=== PATIENT | female | born 1990 | race Caucasian/White ===

== ENCOUNTER 2021-11-29 23:11 | Emergency (ER) | payer MEDICAID, SELFPAY | END 2021-11-30 01:28 | disposition left against medical advice (07) | PROVIDERS: Emergency Provider Emergency Medicine | DX: L50.9 Urticaria, unspecified (principal) ==

== ENCOUNTER 2021-11-30 00:44 | Emergency (ER) | payer MEDICAID, SELFPAY ==
[2021-11-30 01:29] VITALS: BP 116/59; PULSE 90; RESP 20; TEMP 36.8; O2SAT 98; BMI 21.7
[2021-11-30 02:50] VITALS: BP 98/48; PULSE 79; RESP 12; O2SAT 98
[2021-11-30] MEDS: diphenhydrAMINE HCL 25 MG TABLET PO (04:58)
--- NOTE | 2021-11-30 05:25 | ED_ITS ---
HPI - General Adult General Chief complaint: General Medical Stated complaint: Hives/?Allergic reaction Time Seen by Provider: 11/30/21 02:55 Source: patient Mode of arrival: ambulatory History of Present Illness HPI narrative: 30-year-old female without significant past medical history eczema and denies any hiking or exposure to poison arthur presents with a rash to her abdomen and bilateral upper extremities as well as bilateral inner thighs without associated fever, chills and patient reports that she is up-to-date on all vaccines. Palms and soles are not involved and patient denies any recent soap, food, laundry detergent, lotions or perfumes. She also denies any difficulty with swallowing or breathing and denies any lip/ face/tongue swelling. Related Data Previous Rx's Medication Instructions Recorded prednisone 10 mg tablet 10 mg PO DAILY 5 Days #5 tab 11/30/21 Allergies Allergy/AdvReac Type Severity Reaction Status Date / Time Penicillins [PENICILLINS] Allergy Unknown UNKNOWN Unverified 05/03/20 17:07 Review of Systems Review of Systems: Pertinent positives and negatives as stated in HPI 10 point review of systems is otherwise negative. PMFSH Past Medical History Source: nursing notes reviewed Medical History No known health problems Surgical History No history of previous surgery Social History Social History Advance Directives: No Patient : No Physical Exam ED Vital Signs: Vital Signs - 24 hr 11/30/21 01:29 11/30/21 02:50 Temperature 98.2 F Pulse Rate 90 79 Respiratory Rate 20 12 Blood Pressure 116/59 L 98/48 L Pulse Oximetry 98 98 BMI result Body Mass Index 21.7 VITAL SIGNS: Reviewed. GENERAL: Well developed, well nourished, in no acute distress. HEAD: Normocephalic/atraumatic EYES: PERRLA, EOMI OROPHARYNX: no oral lesions noted, posterior pharynx clear , no lip/tongue /facial swelling NECK: Supple, no adenopathy LUNGS: Normal breath sounds, no stridor / wheeze/rhonchi/rales. SpO2<98> CARDIOVASCULAR: Regular rate and rhythm without noted murmurs ABDOMEN: Soft, non-tender, non-distended with bowel sounds. MUSCULOSKELETAL: No tenderness, deformities, or effusions noted on gross inspec tion. EXTREMITIES: No cyanosis, clubbing or edema. SKIN: Inspection of the skin reveals but pruritic raised urticaria noted to the anterior abdomen and extensor surfaces of bilateral forearms as well as bilateral medial thighs. NEUROLOGIC: Alert and oriented x 4. Strength and sensation to light touch were grossly intact x 4. Course Course Course Narrative: 30-year-old female with history and clinical presentation suggestive of possible eczema and/ or contact dermatitis without presence of angioedema or anaphylaxis. Patient was given Benadryl in the emergency room and will receive a prescription for low-dose steroids and instructions regarding eczema management. Discharge Plan Discharge Clinical Impression: Urticaria Patient Disposition: Home, Self-Care Instructions: Urticaria (ED), Eczema (ED) Additional Instructions: 1. Recommend taking [id number] Benadryl at night before going to sleep and combine this with your prescription for low-dose steroids over the next 5 days. 2. Use set a feel for body wash, do not take hot showers, and liberally apply lotion after taking a shower. Avoid all perfumes and scented body lotions. 3. Follow-up with the primary care provider in the next 2-3 days for re- evaluation. Return to the ER for worsening symptoms. Prescriptions: New prednisone 10 mg tablet 10 mg PO DAILY 5 Days Qty: 5 0RF Referrals: [facility] [Primary Care Provider] -
== END 2021-11-30 05:37 | disposition home or self-care (01) ==
PROVIDERS: Emergency Provider Student in an Organized Health Care Education/Training Program
DX: L50.9 Urticaria, unspecified (principal); Z88.0 Allergy status to penicillin
CPT/HCPCS: 99283; Q0163

== ENCOUNTER 2022-02-07 10:15 | Emergency (ER) | payer MEDICAID, SELFPAY ==
--- NOTE | ~2022-02-07 | US_ITS ---
EXAMINATION: US PELVIS CLINICAL INFORMATION: Pain and left adnexal tenderness. COMPARISON: None TECHNIQUE: Ultrasound of the pelvis is performed using both transabdominal and transvaginal transducers along with Doppler. Transvaginal imaging is performed due to inadequate visualization transabdominally. Doppler color and grayscale evaluation of arterial and venous flow to the ovaries including waveform spectral analysis. FINDINGS: The uterus is anteverted and measures 8.8 x 3.7 x 6 cm in dimension. There is an IUD in the uterus that appears abnormally positioned in the endometrium. The IUD is in abnormal position. The IUD appears flipped with the arms extending into the lower uterine segment/cervix. The endometrium does not appear thickened measuring 0.3 cm. There is a 1 x 0.7 x 0.8 cm hypoechoic lesion in the left anterior uterine body suggestive of a fibroid. The ovaries are normal. The right ovary measures 3.6 x 1.7 x 2.4 cm. The left ovary measures 3.8 x 1.8 x 2.8 cm. Arterial and venous flow is documented to both ovaries. There is no evidence of torsion. There is no fluid in the pelvis. US/US pelvic and transvaginal IMPRESSION: Abnormally positioned IUD. The IUD appears upside down or flipped with the arms extending into the lower uterine segment/cervix. Small uterine fibroid. Normal-appearing ovaries. No evidence of torsion.
--- NOTE | ~2022-02-07 | US_ITS ---
EXAMINATION: US PELVIS CLINICAL INFORMATION: Pain and left adnexal tenderness. COMPARISON: None TECHNIQUE: Ultrasound of the pelvis is performed using both transabdominal and transvaginal transducers along with Doppler. Transvaginal imaging is performed due to inadequate visualization transabdominally. Doppler color and grayscale evaluation of arterial and venous flow to the ovaries including waveform spectral analysis. FINDINGS: The uterus is anteverted and measures 8.8 x 3.7 x 6 cm in dimension. There is an IUD in the uterus that appears abnormally positioned in the endometrium. The IUD is in abnormal position. The IUD appears flipped with the arms extending into the lower uterine segment/cervix. The endometrium does not appear thickened measuring 0.3 cm. There is a 1 x 0.7 x 0.8 cm hypoechoic lesion in the left anterior uterine body suggestive of a fibroid. The ovaries are normal. The right ovary measures 3.6 x 1.7 x 2.4 cm. The left ovary measures 3.8 x 1.8 x 2.8 cm. Arterial and venous flow is documented to both ovaries. There is no evidence of torsion. There is no fluid in the pelvis. US/US pelvic ovarian doppler IMPRESSION: Abnormally positioned IUD. The IUD appears upside down or flipped with the arms extending into the lower uterine segment/cervix. Small uterine fibroid. Normal-appearing ovaries. No evidence of torsion.
[2022-02-07 10:25] VITALS: BP 99/53; PULSE 74; RESP 18; TEMP 37.3; O2SAT 99; BMI 19.3
--- NOTE | 2022-02-07 10:32 | ED.GENADULT ---
HPI - General Adult General Chief complaint: General Medical Stated complaint: abd pain Time Seen by Provider: 02/07/22 10:31 Source: patient Mode of arrival: ambulatory Limitations: no limitations History of Present Illness HPI narrative: 31-year-old female presents for 1 month of smelly vaginal discharge, and lower abdominal pain. Patient states she has had pain in her left pelvis, and has been nauseous. States she has had burning when she pees for the last 2 months, no back pain, no fevers. Patient is sexually active, patient has had pain with sex. She is concern for STDs. Patient's last menstrual period was January 24. States the pelvic pain comes and goes. Patient has a Mirena IUD. Related Data Previous Rx's Medication Instructions Recorded prednisone 10 mg tablet 10 mg PO DAILY 5 days #5 tabs 11/30/21 metronidazole 500 mg tablet 500 mg PO BID 7 days #14 tabs 02/07/22 nitrofurantoin macrocrystal 100 mg 100 mg PO BID 5 days #10 caps 02/07/22 capsule Allergies Allergy/AdvReac Type Severity Reaction Status Date / Time Penicillins [PENICILLINS] Allergy Unknown UNKNOWN Unverified 05/03/20 17:07 Review of Systems Constitutional: Constitutional: Denies body ache(s), Denies chills, Denies fatigue, Denies fever(s), Denies malaise and Denies weakness Eyes: Eyes: Denies diplopia Cardiovascular: Cardiovascular: Denies chest pain, Denies syncope, Denies leg edema, Denies lightheadedness, Denies Loss of Consciousness, Denies palpitations and Denies dyspnea Respiratory: Respiratory: Denies chest congestion, Denies cough and Denies dyspnea Gastrointestinal: Gastrointestinal: Denies abdominal pain, Denies hematochezia, Denies constipation, Denies diarrhea, Reports nausea and Denies vomiting Genitourinary: Genitourinary: Denies abnormal menses, Denies abnormal vaginal bleeding, Denies difficulty voiding, Denies genital pruritis, Denies genital lesions, Reports dyspareunia, Reports dysuria, Denies flank pain, Denies urinary incontinence, Reports urinary urgency, Reports vaginal discharge, Reports vaginal odor and Denies vaginal pruritus Musculoskeletal: Musculoskeletal: Reports no additional musculoskeletal complaints and Denies back pain Neurologic: Denies confusion, Denies syncope and Denies weakness Psychiatric: Psychiatric: Denies anxiety, Denies confusion and Denies depression Endocrine: Endocrine: Denies fatigue and Denies palpitations PMFSH Past Medical History Medical History No known health problems Surgical History No history of previous surgery Social History Social History Advance Directives: No Advance Directives Information Provided: Yes Patient : No Physical Exam ED Vital Signs: Vital Signs - 24 hr 02/07/22 10:25 Temperature 99.1 F Pulse Rate 74 Respiratory Rate 18 Blood Pressure 99/53 L Pulse Oximetry 99 Oxygen Delivery Method Room Air BMI result Body Mass Index 19.3 Const General: No confusion Nutritional Appearance: well nourished Orientation/consciousness: No confusion Limitations: no limitations Eyes Conjunctivae: conjunctivae normal Pupils: Equal, round and reactive pupils present EOM: EOMs intact bilaterally Neck Neck: Yes full ROM, Yes no lymphadenopathy and Yes supple Resp Effort & Inspection: normal respiratory effort and able to speak in complete sentences Auscultation: clear to auscultation bilaterally, no crackles, no rales, no rhonchi and no wheezes Cardio Rate: regular rate Rhythm: regular rhythm Heart sounds: S1 normal heart sound present and S2 normal heart sound present GI Inspection: Yes normal to inspection Palpation (GI): Soft to palpation, nontender, no guarding and not rigid Percussion: Yes normal to percussion Auscultation: normal bowel sounds External Female Exam: normal external appearance, normal appearance of the urethra and No urethral discharge Speculum Exam - Vagina: abnormal vaginal discharge malodorous and bey, not erythematous, no swelling and nontender Speculum Exam - Cervix: normal appearance of the cervix, normal palpation and nontender Bimanual exam- vagina & uterus: normal palpation and No Cervical tenderness present Bimanual Exam- Adnexa, other: tender Skin General skin exam: no rashes or lesions noted Neuro General: No confusion Cranial nerves: Yes Equal, round and reactive pupils present Extrem General: Yes normal to inspection and Yes full ROM Psych Appearance: grossly normal Affect: normal affect Attitude: cooperative Thought process: Normal thought process present Course Course Course Narrative: 31-year-old female lives in a [facility] with her autistic son presents for 1 month of vaginal discharge that is foul in odor with low abdominal pain. On exam, patient has stable vitals, is afebrile, abdomen soft nontender. STATISTICIAN MATHEMATICAL exam shows patient is tender in her left adnexa, no cervical motion tenderness. [place] judge vaginal discharge Did get gonorrhea and chlamydia labs which returned negative. Bacterial vaginosis panel is pending until tomorrow, but will treat clinically for bacterial vaginosis given pelvic pain and foul bey discharge. Ultrasound shows that IUD is not in the correct position. Patient has urinary tract infection as well Macrobid, Flagyl, follow-up with OBGYN for IUD consultation Reevaluation(s) Reevaluation #1: FINDINGS: The uterus is anteverted and measures 8.8 x 3.7 x 6 cm in dimension. There is an IUD in the uterus that appears abnormally positioned in the endometrium. The IUD is in abnormal position. The IUD appears flipped with the arms extending into the lower uterine segment/cervix. The endometrium does not appear thickened measuring 0.3 cm. There is a 1 x 0.7 x 0.8 cm hypoechoic lesion in the left anterior uterine body suggestive of a fibroid. The ovaries are normal. The right ovary measures 3.6 x 1.7 x 2.4 cm. The left ovary measures 3.8 x 1.8 x 2.8 cm. Arterial and venous flow is documented to both ovaries. There is no evidence of torsion. There is no fluid in the pelvis. US/US pelvic and transvaginal IMPRESSION: Abnormally positioned IUD. The IUD appears upside down or flipped with the arms extending into the lower uterine segment/cervix. Small uterine fibroid. Normal-appearing ovaries. No evidence of torsion. Medical Decision Making Lab Data Result diagrams: 02/07/22 11:47 02/07/22 11:47 Labs: Lab Results 02/07/22 02/07/22 02/07/22 Range/Units 11:47 11:47 11:47 WBC 7.4 (4.8-10.8) X10*3/uL RBC 4.53 (4.20-5.50) X10*6/uL Hgb 11.9 L (12.0-16.0) g/dl Hct 38.2 (37.0-47.0) % MCV 84.3 (80.0-98.0) fL MCH 26.3 L (27.0-33.0) pg MCHC 31.2 (31.0-35.0) g/dl RDW 13.7 (11.0-16.0) % Plt Count 292 (160-400) X10*3/uL MPV 9.7 (9.4-12.3) fL Immature Gran % (Auto) 0.3 (0.0-0.4) % Neut % (Auto) 59.3 (45-73) % Lymph % (Auto) 28.5 (20-40) % Daniels % (Auto) 10.5 (2-11) % Eos % (Auto) 0.9 (0-4) % Baso % (Auto) 0.5 (0-2) % Lymph # (Auto) 2.1 (1.2-4.9) X10*3/uL Daniels # (Auto) 0.8 (0.1-1.2) X10*3/uL Eos # (Auto) 0.1 (0.0-0.4) X10*3/uL Baso # (Auto) 0.0 (0.0-0.2) X10*3/uL Abs Immat Gran (auto) 0.02 (0.00-0.03) X10*3/uL Absolute Neuts (auto) 4.4 (2.0-8.3) x10*3/uL Absolute Nucleated RBC 0.000 (0.0-0.012) X10*3/uL Nucleated RBC % (auto) 0.0 (0.0-0.2) /100WBC Sodium 138 (135-145) mmol/L Potassium 4.1 (3.3-5.1) mmol/L Chloride 105 (96-108) mmol/L Carbon Dioxide 28 (22-29) mmol/L Anion Gap 9 L (12-20) BUN 13 (9-16) mg/dL Creatinine 0.71 (0.5-1.4) mg/dL Estim Creat Clear Calc 83.0 Estimated GFR > 60 Random Glucose 92 (60-115) mg/dL Calcium 9.1 (8.4-10.2) mg/dL Total Bilirubin 0.4 (0.0-1.0) mg/dL AST 14 (5-31) U/L ALT 16 (0-31) U/L Alkaline Phosphatase 47 (39-117) U/L Total Protein 7.2 (6.5-8.0) g/dL Albumin 4.6 (3.5-5.0) g/dL Urine Color YELLOW Urine Appearance CLOUDY Urine pH 6.0 (5.0-8.0) Ur Specific [place] >= 1.030 H (1.005-1.025) Urine Protein 1+ H (NEG-TRACE) MG/DL Urine Glucose (UA) NEG (NEG) MG/DL Urine Ketones 5 (NEG) MG/DL Urine Blood TRACE (NEG) Urine Nitrite NEG (NEG) Ur Leukocyte Esterase 1+ H (NEG) Urine RBC 1-4 (0) /HPF Urine WBC 10-14 H (0-4) /HPF Ur Squamous Epith Cells 4+ /LPF Urine Bacteria 1+ /LPF Urine Test (NEGATIVE) Chlam trachomat DNA PCR (Not Detect.) N.gonorrhoeae DNA (PCR) (Not Detect.) 02/07/22 02/07/22 Range/Units 11:47 11:47 WBC (4.8-10.8) X10*3/uL RBC (4.20-5.50) X10*6/uL Hgb (12.0-16.0) g/dl Hct (37.0-47.0) % MCV (80.0-98.0) fL MCH (27.0-33.0) pg MCHC (31.0-35.0) g/dl RDW (11.0-16.0) % Plt Count (160-400) X10*3/uL MPV (9.4-12.3) fL Immature Gran % (Auto) (0.0-0.4) % Neut % (Auto) (45-73) % Lymph % (Auto) (20-40) % Daniels % (Auto) (2-11) % Eos % (Auto) (0-4) % Baso % (Auto) (0-2) % Lymph # (Auto) (1.2-4.9) X10*3/uL Daniels # (Auto) (0.1-1.2) X10*3/uL Eos # (Auto) (0.0-0.4) X10*3/uL Baso # (Auto) (0.0-0.2) X10*3/uL Abs Immat Gran (auto) (0.00-0.03) X10*3/uL Absolute Neuts (auto) (2.0-8.3) x10*3/uL Absolute Nucleated RBC (0.0-0.012) X10*3/uL Nucleated RBC % (auto) (0.0-0.2) /100WBC Sodium (135-145) mmol/L Potassium (3.3-5.1) mmol/L Chloride (96-108) mmol/L Carbon Dioxide (22-29) mmol/L Anion Gap (12-20) BUN (9-16) mg/dL Creatinine (0.5-1.4) mg/dL Estim Creat Clear Calc Estimated GFR Random Glucose (60-115) mg/dL Calcium (8.4-10.2) mg/dL Total Bilirubin (0.0-1.0) mg/dL AST (5-31) U/L ALT (0-31) U/L Alkaline Phosphatase (39-117) U/L Total Protein (6.5-8.0) g/dL Albumin (3.5-5.0) g/dL Urine Color Urine Appearance Urine pH (5.0-8.0) Ur Specific [place] (1.005-1.025) Urine Protein (NEG-TRACE) MG/DL Urine Glucose (UA) (NEG) MG/DL Urine Ketones (NEG) MG/DL Urine Blood (NEG) Urine Nitrite (NEG) Ur Leukocyte Esterase (NEG) Urine RBC (0) /HPF Urine WBC (0-4) /HPF Ur Squamous Epith Cells /LPF Urine Bacteria /LPF Urine Test NEGATIVE (NEGATIVE) Chlam trachomat DNA PCR NOT DETECTED (Not Detect.) N.gonorrhoeae DNA (PCR) NOT DETECTED (Not Detect.) Discharge Plan Discharge Clinical Impression: Bacterial vaginosis, UTI (urinary tract infection), IUD complication Patient Disposition: Home, Self-Care Instructions: Bacterial Vaginosis (ED), Urinary Tract Infection in Women (ED) Additional Instructions: Have prescribed metronidazole for bacterial vaginosis, and nitrofurantoin for your your urinary tract infection. Please complete both of these prescriptions. Please called Dr. Hay, our OBGYN, if you have not heard from him by Thursday afternoon. His phone number is [phone] Please return to emergency room if you have worsening pelvic pain, fevers, chest pain, shortness of breath, abdominal pain, or any other new or concerning symptoms Prescriptions: New metronidazole 500 mg tablet 500 mg PO BID 7 Days Qty: 14 0RF nitrofurantoin macrocrystal 100 mg capsule 100 mg PO BID 5 Days Qty: 10 0RF Rx Instructions: must administer with a meal/food No Action prednisone 10 mg tablet 10 mg PO DAILY 5 Days Qty: 5 0RF Referrals: Dev Hay MD [Physician] - (inverted IUD) Interventions: ED Discharge Assessment Last Done: 02/07/22 14:39 Discharge Date/Time: 02/07/22 14:40
[2022-02-07 11:53] LABS: MANUAL DIFF FLAG NO
[2022-02-07 11:55] LABS: Basophils Percent Auto 0.5 % (0-2); Eosinophils Absolute Auto 0.1 X10*3/uL (0.0-0.4); Eosinophils Percent Auto 0.9 % (0-4); Hematocrit 38.2 % (37.0-47.0); Hemoglobin 11.9 g/dl (12.0-16.0); Imm Gran Abs Auto 0.02 X10*3/uL (0.00-0.03); Imm Gran Pct Auto 0.3 % (0.0-0.4); Lymphocytes Absolute Auto 2.1 X10*3/uL (1.2-4.9); Lymphocytes Percent Auto 28.5 % (20-40); Mean Corpuscular HGB Conc 31.2 g/dl (31.0-35.0); Mean Corpuscular Hemoglobin 26.3 pg (27.0-33.0); Mean Corpuscular Volume 84.3 fL (80.0-98.0); Mean Platelet Volume 9.7 fL (9.4-12.3); Monocytes Absolute Auto 0.8 X10*3/uL (0.1-1.2); Monocytes Percent Auto 10.5 % (2-11); Neutrophils Absolute Auto 4.4 x10*3/uL (2.0-8.3); Neutrophils Percent Auto 59.3 % (45-73); Platelet Count 292 X10*3/uL (160-400); Red Blood Count 4.53 X10*6/uL (4.20-5.50); Red Cell Distribution Width 13.7 % (11.0-16.0); White Blood Count 7.4 X10*3/uL (4.8-10.8)
[2022-02-07 12:02] LABS: Appearance Urine CLOUDY; Color Urine YELLOW; Glucose Urine UA NEG (NEG); Leukocyte Esterase Urine 1+ (NEG); Nitrite Urine NEG (NEG); Specific Gravity - Urine >= 1.030 (1.005-1.025); UACC Culture Trigger YES; Urine Blood TRACE (NEG); Urine Ketones 5 MG/DL (NEG); Urine Protein 1+ MG/DL (NEG-TRACE)
[2022-02-07 12:03] LABS: UPreg QC Valid YES; Urine Pregnancy NEGATIVE (NEGATIVE)
[2022-02-07 12:13] LABS: Bacteria Urine 1+ /LPF; Squamous Epithelial Cell Urine 4+ /LPF
[2022-02-07 12:27] LABS: Alanine Aminotransferase 16 U/L (0-31); Albumin Level 4.6 g/dL (3.5-5.0); Alkaline Phosphatase 47 U/L (39-117); Anion Gap 9 (12-20); Aspartate Amino Transferase 14 U/L (5-31); Bilirubin Total 0.4 mg/dL (0.0-1.0); Blood Urea Nitrogen 13 mg/dL (9-16); Calcium 9.1 mg/dL (8.4-10.2); Carbon Dioxide 28 mmol/L (22-29); Chloride 105 mmol/L (96-108); Estimated Glomerular Filt Rate > 60; Glucose Random 92 mg/dL (60-115); Potassium 4.1 mmol/L (3.3-5.1); Sodium 138 mmol/L (135-145); Total Protein 7.2 g/dL (6.5-8.0)
[2022-02-07 13:43] LABS: CT PCR NOT DETECTED (Not Detect.); NG PCR NOT DETECTED (Not Detect.)
[2022-02-08 15:10] LABS: BV Int Neg Control Negative (Negative); BV Int Pos Control Positive (Positive)
== END 2022-02-07 14:40 | disposition home or self-care (01) ==
PROVIDERS: Physician Assistant; Emergency Provider Emergency Medicine Emergency Medical Services
DX: N76.0 Acute vaginitis (principal); N39.0 Urinary tract infection, site not specified; R10.2 Pelvic and perineal pain; T83.9XXA Unspecified complication of genitourinary prosthetic device, implant and graft, initial encounter; Y76.2 Prosthetic and other implants, materials and accessory obstetric and gynecological devices associated with adverse incidents; Y92.9 Unspecified place or not applicable; Z79.899 Other long term (current) drug therapy
CPT/HCPCS: 36415; 76830; 76856; 80053; 81001; 81003; 81025; 85025; 87086; 87480; 87491; 87510; 87591; 87660; 93975; 99284